=== PATIENT | female | born 1995 | race Caucasian/White ===

== ENCOUNTER 2017-04-21 18:31 | Emergency (ER) | payer MEDICAID ==
[~2017-04-21] VITALS: Ht 154.9 cm; Wt 67.6 kg
[2017-04-21 18:39] VITALS: BP 112/75
== END 2017-04-21 20:20 | disposition home or self-care (01) ==
LOC: ED 18:31
DX: H10.12 Acute atopic conjunctivitis, left eye (principal); H01.004 Unspecified blepharitis left upper eyelid